=== PATIENT | male | born 1945 | race Caucasian/White ===

== ENCOUNTER 2019-10-29 06:23 | Inpatient (IN) ==
[2019-10-29] MEDS ORDERED: *HR* Propofol 200 MG/20 ML VIAL IVP ONE (07:07)
[2019-10-29] MEDS ORDERED: *HR* FentaNYL (PF) 100 MCG/2 ML VIAL ONE ×2 (07:07→08:24)
[2019-10-29] MEDS ORDERED: Gabapentin 300 MG CAPSULE PO ONE (07:09)
[2019-10-29] MEDS ORDERED: Lidocaine -MPF 2% 2 ML VIAL ONE ×2 (07:10→07:54)
[2019-10-29] MEDS ORDERED: *HR* Rocuronium Bromide 50 MG/5 ML VIAL ONE ×2 (07:13→09:29)
[2019-10-29] MEDS ORDERED: Ondansetron 4 MG/2 ML VIAL ONE (07:13)
[2019-10-29] MEDS ORDERED: *HR* Succinylcholine 200 MG/10 ML VIAL IVP ONE (07:13)
[2019-10-29] MEDS ORDERED: Dexamethasone 4 MG/ML VIAL ONE (07:13)
[2019-10-29] MEDS ORDERED: CeFAZolin Syr 2,000MG/20 ML 2,000 MG/20 ML SYRINGE IVPB ONE (07:14)
[2019-10-29] MEDS ORDERED: Ringers Solution, Lactated 1,000 ML IVC SCH (07:15)
[2019-10-29] MEDS ORDERED: Heparin 1,000 UNITS/500 mL 500 ML ONE (07:25)
[2019-10-29] MEDS ORDERED: Famotidine 20 MG/2 ML VIAL ONE (07:50)
[2019-10-29] MEDS ORDERED: Acetaminophen IV 1,000 MG/100 ML INFUS..BTL ONE (07:50)
[2019-10-29] MEDS ORDERED: *HR* PHENYLEPHRINE 1,000 MCG/10 ML SYRINGE IVP ONE (08:20)
[2019-10-29] MEDS ORDERED: *HR* HYDROMORPHONE 2 MG/ML VIAL ONE (08:36)
[2019-10-29] MEDS ORDERED: *HR* Promethazine 25 MG/ML VIAL IVP PRN (08:48)
[2019-10-29] MEDS ORDERED: *HR* HYDROmorphone PF 0.5 MG/0.5 ML SYRINGE IVP PRN (08:48)
[2019-10-29] MEDS ORDERED: Ondansetron 4 MG/2 ML VIAL IVP ONE (08:48)
[2019-10-29] MEDS ORDERED: EPHEDrine 50 MG/ML VIAL ONE (09:01)
[2019-10-29] MEDS ORDERED: Naloxone 0.4 MG/ML INJ IVP PRN (11:22)
[2019-10-29] MEDS ORDERED: *HR* HYDROcodone/Acet 5/325 mg TABLET PO PRN (11:22)
[2019-10-29] MEDS ORDERED: Ondansetron 4 MG/2 ML VIAL IVP PRN (11:22)
[2019-10-29] MEDS: Ketorolac 15 MG/ML VIAL IVP SCH ×2 (12:06→17:40)
[2019-10-29] MEDS: *HR* Heparin 5,000 UNIT/ML VIAL SQ SCH ×2 (12:07→21:19)
[2019-10-29] MEDS: polyethylene glycoL 3350 17 GM POWD.PACK PO SCH (12:07)
[2019-10-29] MEDS: Ipratropium/Albuterol Neb 3 ML IH SCH ×4 (16:17→23:58)
[2019-10-29] MEDS: Gabapentin 300 MG CAPSULE PO SCH ×2 (16:22→21:19)
[2019-10-29] MEDS: 0.9 % Sodium Chloride 1,000 ML IVC SCH (17:41)
[2019-10-29] MEDS: Budesonide/Formoterol 160/4.5 1 PUFF INH IH SCH (20:41)
[2019-10-29] MEDS: Sennosides/Docusate Sodium TABLET PO SCH (21:19)
[2019-10-29] MEDS: Famotidine 20 MG TABLET PO SCH (21:19)
[2019-10-30] MEDS: Ketorolac 15 MG/ML VIAL IVP SCH ×5 (00:19→23:35)
[2019-10-30] MEDS: Ipratropium/Albuterol Neb 3 ML IH SCH ×6 (03:52→23:49)
[2019-10-30 05:04] LABS: Hematocrit 33.9 % (37.5-50.1); Mean Corpuscular HGB Conc 32.2 g/dL (31.6-35.5); Mean Corpuscular Hemoglobin 28.1 pg (28.0-33.3); Mean Corpuscular Volume 87.4 fL (83.0-100.0); Mean Platelet Volume 8.5 fL (9.4-12.4); Platelet Count 155 K/mcL (140-400); Red Blood Count 3.88 M/mcL (4.19-5.50); Red Cell Distribution Width 18.1 % (11.5-14.5)
[2019-10-30 05:05] LABS: Hemoglobin 10.9 g/dL (12.9-16.9); White Blood Count 6.1 K/mcL (4.3-11.1)
[2019-10-30 05:23] LABS: % Iron Saturation 10 % (20-55); BUN/Creatinine Ratio 19 (6-26); Blood Urea Nitrogen 15 mg/dL (8-23); Calcium 8.5 mg/dL (8.6-10.3); Carbon Dioxide 23 mEq/L (23-29); Chloride 105 mEq/L (98-107); Glucose 142 mg/dL (70-105); Iron 26 mcg/dL (65-175); Magnesium 1.7 mg/dL (1.6-2.6); Osmolality,Calculated 289 (280-300); Phosphorous 2.5 mg/dL (2.7-4.5); Potassium 3.8 mEq/L (3.5-5.1); Sodium 138 mEq/L (136-145); Transferrin 184 mg/dL (203-362); eGFR For African Americans > 60 (> 60); eGFR For Non-African Americans > 60 (> 60)
[2019-10-30] MEDS: *HR* Heparin 5,000 UNIT/ML VIAL SQ SCH ×3 (06:17→20:31)
[2019-10-30] MEDS: 0.9 % Sodium Chloride 1,000 ML IVC SCH (06:18)
[2019-10-30] MEDS: Budesonide/Formoterol 160/4.5 1 PUFF INH IH SCH ×2 (08:26→19:39)
[2019-10-30] MEDS: Famotidine 20 MG TABLET PO SCH ×2 (08:34→20:30)
[2019-10-30] MEDS: amLODIPine 5 MG TABLET PO SCH (08:34)
[2019-10-30] MEDS: Sennosides/Docusate Sodium TABLET PO SCH ×2 (08:34→20:30)
[2019-10-30] MEDS: Gabapentin 300 MG CAPSULE PO SCH ×3 (08:34→20:30)
[2019-10-30] MEDS: atenoloL 25 MG TABLET PO SCH (08:34)
[2019-10-30] MEDS ORDERED: Potassium Phosphate 44 MEQ in 0.9 % Sodium Chloride 250 ML IVPB ONE (08:49)
[2019-10-30] MEDS ORDERED: Iron Sucrose Complex 400 MG in 0.9 % Sodium Chloride 250 ML IVPB ONE (08:49)
[2019-10-30] MEDS ORDERED: Furosemide 20 MG TABLET PO ONE (09:00)
[2019-10-30] MEDS: polyethylene glycoL 3350 17 GM POWD.PACK PO SCH (11:33)
[2019-10-31] MEDS: Ipratropium/Albuterol Neb 3 ML IH SCH ×5 (03:58→20:20)
[2019-10-31 04:31] LABS: Hematocrit 30.3 % (37.5-50.1); Hemoglobin 9.6 g/dL (12.9-16.9); Mean Corpuscular HGB Conc 31.7 g/dL (31.6-35.5); Mean Corpuscular Hemoglobin 28.5 pg (28.0-33.3); Mean Corpuscular Volume 89.9 fL (83.0-100.0); Mean Platelet Volume 8.9 fL (9.4-12.4); Platelet Count 161 K/mcL (140-400); Red Blood Count 3.37 M/mcL (4.19-5.50); Red Cell Distribution Width 18.8 % (11.5-14.5); White Blood Count 5.3 K/mcL (4.3-11.1)
[2019-10-31 04:51] LABS: BUN/Creatinine Ratio 15 (6-26); Blood Urea Nitrogen 14 mg/dL (8-23); Calcium 8.5 mg/dL (8.6-10.3); Carbon Dioxide 26 mEq/L (23-29); Chloride 108 mEq/L (98-107); Glucose 134 mg/dL (70-105); Magnesium 2.1 mg/dL (1.6-2.6); Osmolality,Calculated 292 (280-300); Phosphorous 2.7 mg/dL (2.7-4.5); Potassium 3.8 mEq/L (3.5-5.1); Sodium 140 mEq/L (136-145); eGFR For African Americans > 60 (> 60); eGFR For Non-African Americans > 60 (> 60)
[2019-10-31] MEDS: *HR* Heparin 5,000 UNIT/ML VIAL SQ SCH ×2 (05:02→21:24)
[2019-10-31] MEDS: Ketorolac 15 MG/ML VIAL IVP SCH ×3 (05:03→17:19)
[2019-10-31] MEDS: Budesonide/Formoterol 160/4.5 1 PUFF INH IH SCH ×2 (07:21→20:20)
[2019-10-31] MEDS: Gabapentin 300 MG CAPSULE PO SCH ×2 (07:39→21:26)
[2019-10-31] MEDS: Famotidine 20 MG TABLET PO SCH ×2 (07:39→21:26)
[2019-10-31] MEDS: Sennosides/Docusate Sodium TABLET PO SCH ×2 (07:39→21:25)
[2019-10-31] MEDS: atenoloL 25 MG TABLET PO SCH (07:39)
[2019-10-31] MEDS: amLODIPine 5 MG TABLET PO SCH (07:39)
[2019-10-31] MEDS: polyethylene glycoL 3350 17 GM POWD.PACK PO SCH ×2 (11:57→17:19)
[2019-10-31] MEDS ORDERED: Ondansetron 4 MG/2 ML VIAL IVP PRN (16:07)
[2019-10-31] MEDS ORDERED: Naloxone 0.4 MG/ML INJ IVP PRN (16:07)
[2019-10-31] MEDS: *HR* HYDROcodone/Acet 5/325 mg TABLET PO PRN (21:25)
[2019-11-01] MEDS: Ipratropium/Albuterol Neb 3 ML IH SCH ×7 (00:01→23:59)
[2019-11-01] MEDS: Ketorolac 15 MG/ML VIAL IVP SCH ×4 (01:14→17:00)
[2019-11-01 01:39] LABS: Hematocrit 30.6 % (37.5-50.1); Hemoglobin 9.3 g/dL (12.9-16.9); Mean Corpuscular HGB Conc 30.4 g/dL (31.6-35.5); Mean Corpuscular Hemoglobin 27.9 pg (28.0-33.3); Mean Corpuscular Volume 91.9 fL (83.0-100.0); Mean Platelet Volume 8.2 fL (9.4-12.4); Platelet Count 168 K/mcL (140-400); Red Blood Count 3.33 M/mcL (4.19-5.50); Red Cell Distribution Width 19.2 % (11.5-14.5); White Blood Count 3.9 K/mcL (4.3-11.1)
[2019-11-01 01:58] LABS: BUN/Creatinine Ratio 17 (6-26); Blood Urea Nitrogen 14 mg/dL (8-23); Calcium 8.5 mg/dL (8.6-10.3); Carbon Dioxide 27 mEq/L (23-29); Chloride 108 mEq/L (98-107); Glucose 145 mg/dL (70-105); Osmolality,Calculated 293 (280-300); Phosphorous 2.9 mg/dL (2.7-4.5); Potassium 3.9 mEq/L (3.5-5.1); Sodium 140 mEq/L (136-145); eGFR For African Americans > 60 (> 60); eGFR For Non-African Americans > 60 (> 60)
[2019-11-01] MEDS: *HR* Heparin 5,000 UNIT/ML VIAL SQ SCH ×3 (05:26→21:16)
[2019-11-01] MEDS: Gabapentin 300 MG CAPSULE PO SCH ×3 (07:36→21:17)
[2019-11-01] MEDS: Sennosides/Docusate Sodium TABLET PO SCH ×2 (07:36→21:18)
[2019-11-01] MEDS: atenoloL 25 MG TABLET PO SCH (07:37)
[2019-11-01] MEDS: Famotidine 20 MG TABLET PO SCH ×2 (07:37→21:17)
[2019-11-01] MEDS: Budesonide/Formoterol 160/4.5 1 PUFF INH IH SCH ×2 (07:50→19:56)
[2019-11-01] MEDS: polyethylene glycoL 3350 17 GM POWD.PACK PO SCH (17:00)
[2019-11-01] MEDS: *HR* HYDROcodone/Acet 5/325 mg TABLET PO PRN (21:17)
[2019-11-02 01:18] LABS: Hematocrit 30.4 % (37.5-50.1); Hemoglobin 9.4 g/dL (12.9-16.9); Mean Corpuscular HGB Conc 30.9 g/dL (31.6-35.5); Mean Corpuscular Hemoglobin 28.2 pg (28.0-33.3); Mean Corpuscular Volume 91.3 fL (83.0-100.0); Mean Platelet Volume 8.3 fL (9.4-12.4); Platelet Count 198 K/mcL (140-400); Red Blood Count 3.33 M/mcL (4.19-5.50); Red Cell Distribution Width 18.9 % (11.5-14.5)
[2019-11-02 01:42] LABS: BUN/Creatinine Ratio 17 (6-26); Blood Urea Nitrogen 14 mg/dL (8-23); Calcium 8.7 mg/dL (8.6-10.3); Carbon Dioxide 25 mEq/L (23-29); Chloride 109 mEq/L (98-107); Glucose 114 mg/dL (70-105); Magnesium 1.9 mg/dL (1.6-2.6); Osmolality,Calculated 293 (280-300); Phosphorous 3.2 mg/dL (2.7-4.5); Potassium 4.2 mEq/L (3.5-5.1); Sodium 141 mEq/L (136-145); eGFR For African Americans > 60 (> 60); eGFR For Non-African Americans > 60 (> 60)
[2019-11-02] MEDS: Ipratropium/Albuterol Neb 3 ML IH SCH ×2 (03:23→07:31)
[2019-11-02] MEDS: *HR* Heparin 5,000 UNIT/ML VIAL SQ SCH (04:59)
[2019-11-02] MEDS: Ketorolac 15 MG/ML VIAL IVP SCH ×2 (04:59→05:00)
[2019-11-02] MEDS: Budesonide/Formoterol 160/4.5 1 PUFF INH IH SCH (07:31)
[2019-11-02] MEDS: *HR* HYDROcodone/Acet 5/325 mg TABLET PO PRN (09:08)
[2019-11-02] MEDS: atenoloL 25 MG TABLET PO SCH (09:46)
[2019-11-02] MEDS: Gabapentin 300 MG CAPSULE PO SCH (09:46)
[2019-11-02] MEDS: Sennosides/Docusate Sodium TABLET PO SCH (09:46)
[2019-11-02] MEDS: Famotidine 20 MG TABLET PO SCH (09:46)
[2019-11-02 11:06] VITALS: BP 117/77
== END 2019-11-02 11:31 | disposition home or self-care (01) | DRG 165 ==
LOC: SAMDAY 06:23 → ICNU 08:27 → 3NENU 10-31 16:00
PROVIDERS: ADMIT Thoracic Surgery (Cardiothoracic Vascular Surgery); ATTEND Thoracic Surgery (Cardiothoracic Vascular Surgery)

== ENCOUNTER 2019-12-11 13:40 | Inpatient (IN) ==
[2019-12-11 14:46] LABS: Basophils % 0.5 %; Eosinophils # 0.2 K/mcL (0.0-0.6); Eosinophils % 3.4 %; Hematocrit 41.4 % (37.5-50.1); Hemoglobin 12.5 g/dL (12.9-16.9); Immature Granulocytes % 0.6 % (0-4); Lymphocytes # 0.6 K/mcL (0.6-4.6); Lymphocytes % 8.5 %; Mean Corpuscular HGB Conc 30.2 g/dL (31.6-35.5); Mean Corpuscular Hemoglobin 26.2 pg (28.0-33.3); Mean Corpuscular Volume 86.8 fL (83.0-100.0); Mean Platelet Volume 8.7 fL (9.4-12.4); Monocytes # 0.5 K/mcL (0.0-1.3); Monocytes % 7.4 %; Neutrophils # 5.2 K/mcL (1.6-8.9); Platelet Count 315 K/mcL (140-400); Red Blood Count 4.77 M/mcL (4.19-5.50); Red Cell Distribution Width 15.1 % (11.5-14.5); Segmented Neutrophils % 79.6 %; White Blood Count 6.5 K/mcL (4.3-11.1)
[2019-12-11 15:06] LABS: BUN/Creatinine Ratio 19 (6-26); Blood Urea Nitrogen 13 mg/dL (8-23); Calcium 9.4 mg/dL (8.6-10.3); Carbon Dioxide 27 mEq/L (23-29); Chloride 103 mEq/L (98-107); Glucose 109 mg/dL (70-105); Osmolality,Calculated 289 (280-300); Potassium 4.1 mEq/L (3.5-5.1); Sodium 139 mEq/L (136-145); eGFR For African Americans > 60 (> 60); eGFR For Non-African Americans > 60 (> 60)
[2019-12-11] MEDS ORDERED: Piperacillin/Tazobactam 3.375 GM in 0.9 % Sodium Chloride Mini Bag 100 ML IVPB ONE (15:19)
[2019-12-11] MEDS ORDERED: *HR* HYDROcodone/Acet 10/325 mg TABLET PO ONE (16:08)
[2019-12-11] MEDS ORDERED: *HR* Promethazine 25 MG/ML VIAL IVP PRN (17:13)
[2019-12-11] MEDS ORDERED: Naloxone 0.4 MG/ML INJ IVP PRN (17:13)
[2019-12-11] MEDS ORDERED: NON-FORMULARY MEDICATION 1 EACH EACH (Ipratropium/Albuterol Sulfate 1 PUFF) IH PRN (17:55)
[2019-12-11] MEDS ORDERED: Albuterol 2.5 MG/3 ML NEBULIZER IH PRN (17:55)
[2019-12-11] MEDS: *HR* Heparin 5,000 UNIT/ML VIAL SQ SCH (18:57)
[2019-12-11] MEDS: Megestrol Acetate 400 MG/10 ML UDC PO SCH (18:57)
[2019-12-11] MEDS: Lactobacillus 1 EACH CAP.SPRINK PO SCH (20:27)
[2019-12-11] MEDS: Doxycycline 100 MG CAPSULE PO SCH (20:28)
[2019-12-11] MEDS: Budesonide/Formoterol 160/4.5 1 PUFF INH IH SCH (20:47)
[2019-12-11] MEDS: Piperacillin/Tazobactam 3.375 GM in 0.9 % Sodium Chloride Mini Bag 100 ML IVPB SCH (23:35)
[2019-12-11] MEDS: Acetaminophen 325 MG TABLET PO PRN (23:57)
[2019-12-12 01:42] LABS: Basophils % 0.6 %; Eosinophils # 0.4 K/mcL (0.0-0.6); Hematocrit 34.6 % (37.5-50.1); Immature Granulocytes % 0.4 % (0-4); Lymphocytes # 0.6 K/mcL (0.6-4.6); Lymphocytes % 10.7 %; Mean Corpuscular HGB Conc 31.5 g/dL (31.6-35.5); Mean Corpuscular Hemoglobin 27.1 pg (28.0-33.3); Mean Corpuscular Volume 86.1 fL (83.0-100.0); Mean Platelet Volume 8.8 fL (9.4-12.4); Monocytes # 0.5 K/mcL (0.0-1.3); Neutrophils # 3.8 K/mcL (1.6-8.9); Platelet Count 268 K/mcL (140-400); Red Blood Count 4.02 M/mcL (4.19-5.50); Red Cell Distribution Width 15.1 % (11.5-14.5); Segmented Neutrophils % 71.3 %; White Blood Count 5.3 K/mcL (4.3-11.1)
[2019-12-12 01:56] LABS: Hemoglobin 10.9 g/dL (12.9-16.9)
[2019-12-12 02:02] LABS: BUN/Creatinine Ratio 19 (6-26); Blood Urea Nitrogen 13 mg/dL (8-23); Calcium 8.5 mg/dL (8.6-10.3); Carbon Dioxide 25 mEq/L (23-29); Chloride 106 mEq/L (98-107); Glucose 124 mg/dL (70-105); Osmolality,Calculated 290 (280-300); Potassium 3.8 mEq/L (3.5-5.1); Sodium 139 mEq/L (136-145); eGFR For African Americans > 60 (> 60); eGFR For Non-African Americans > 60 (> 60)
[2019-12-12] MEDS: *HR* Heparin 5,000 UNIT/ML VIAL SQ SCH ×2 (05:17→16:57)
[2019-12-12] MEDS: Megestrol Acetate 400 MG/10 ML UDC PO SCH (09:01)
[2019-12-12] MEDS: Lactobacillus 1 EACH CAP.SPRINK PO SCH ×2 (09:01→20:22)
[2019-12-12] MEDS: Doxycycline 100 MG CAPSULE PO SCH ×2 (09:01→20:22)
[2019-12-12] MEDS: polyethylene glycoL 3350 17 GM POWD.PACK PO SCH (09:02)
[2019-12-12] MEDS: Piperacillin/Tazobactam 3.375 GM in 0.9 % Sodium Chloride Mini Bag 100 ML IVPB SCH ×3 (09:02→23:32)
[2019-12-12] MEDS: Acetaminophen 325 MG TABLET PO PRN ×2 (09:13→20:30)
[2019-12-12] MEDS: amLODIPine 5 MG TABLET PO SCH (09:41)
[2019-12-12] MEDS: atenoloL 25 MG TABLET PO SCH (09:41)
[2019-12-12] MEDS: Budesonide/Formoterol 160/4.5 1 PUFF INH IH SCH ×2 (09:50→20:16)
[2019-12-12] MEDS: Ipratropium/Albuterol Neb 3 ML IH PRN (23:50)
[2019-12-13] MEDS: Benzonatate 100 MG CAPSULE PO PRN (00:09)
[2019-12-13 05:13] LABS: Basophils % 0.5 %; Eosinophils # 0.3 K/mcL (0.0-0.6); Eosinophils % 5.6 %; Hematocrit 37.2 % (37.5-50.1); Hemoglobin 11.3 g/dL (12.9-16.9); Immature Granulocytes % 0.3 % (0-4); Lymphocytes # 0.7 K/mcL (0.6-4.6); Lymphocytes % 11.4 %; Mean Corpuscular HGB Conc 30.4 g/dL (31.6-35.5); Mean Corpuscular Volume 85.5 fL (83.0-100.0); Mean Platelet Volume 8.8 fL (9.4-12.4); Monocytes # 0.6 K/mcL (0.0-1.3); Monocytes % 9.4 %; Neutrophils # 4.3 K/mcL (1.6-8.9); Platelet Count 279 K/mcL (140-400); Red Blood Count 4.35 M/mcL (4.19-5.50); Red Cell Distribution Width 14.9 % (11.5-14.5); Segmented Neutrophils % 72.8 %; White Blood Count 5.9 K/mcL (4.3-11.1)
[2019-12-13] MEDS: *HR* OxyCODONE Immed Rel 5 MG TABLET PO PRN (05:20)
[2019-12-13 05:28] LABS: BUN/Creatinine Ratio 14 (6-26); Blood Urea Nitrogen 11 mg/dL (8-23); Carbon Dioxide 25 mEq/L (23-29); Chloride 105 mEq/L (98-107); Glucose 95 mg/dL (70-105); Osmolality,Calculated 285 (280-300); Potassium 3.4 mEq/L (3.5-5.1); Sodium 138 mEq/L (136-145); eGFR For African Americans > 60 (> 60); eGFR For Non-African Americans > 60 (> 60)
[2019-12-13] MEDS: *HR* Heparin 5,000 UNIT/ML VIAL SQ SCH ×2 (05:56→17:56)
[2019-12-13] MEDS ORDERED: Vancomycin 1,500 MG/265 ML IV.SOLN IVPB SCH (07:00)
[2019-12-13] MEDS: Lactobacillus 1 EACH CAP.SPRINK PO SCH ×2 (08:28→20:31)
[2019-12-13] MEDS: Doxycycline 100 MG CAPSULE PO SCH ×2 (08:28→20:31)
[2019-12-13] MEDS: Megestrol Acetate 400 MG/10 ML UDC PO SCH (08:28)
[2019-12-13] MEDS: atenoloL 25 MG TABLET PO SCH (08:29)
[2019-12-13] MEDS: amLODIPine 5 MG TABLET PO SCH (08:29)
[2019-12-13] MEDS: polyethylene glycoL 3350 17 GM POWD.PACK PO SCH (08:29)
[2019-12-13] MEDS: Piperacillin/Tazobactam 3.375 GM in 0.9 % Sodium Chloride Mini Bag 100 ML IVPB SCH ×2 (08:29→15:52)
[2019-12-13] MEDS ORDERED: Aminoglycoside Consult 1 EACH MC ONE (08:49)
[2019-12-13] MEDS: Budesonide/Formoterol 160/4.5 1 PUFF INH IH SCH ×2 (10:27→21:37)
[2019-12-13] MEDS: Ipratropium/Albuterol Neb 3 ML IH PRN (10:27)
[2019-12-13] MEDS: Ipratropium/Albuterol Neb 3 ML IH SCH ×3 (15:41→21:37)
[2019-12-13] MEDS: Acetaminophen 325 MG TABLET PO PRN (20:31)
[2019-12-14] MEDS: Piperacillin/Tazobactam 3.375 GM in 0.9 % Sodium Chloride Mini Bag 100 ML IVPB SCH ×3 (00:12→16:08)
[2019-12-14 02:50] LABS: Basophils % 0.3 %; Eosinophils # 0.2 K/mcL (0.0-0.6); Eosinophils % 3.3 %; Hematocrit 35.3 % (37.5-50.1); Hemoglobin 10.9 g/dL (12.9-16.9); Immature Granulocytes % 0.5 % (0-4); Lymphocytes # 0.5 K/mcL (0.6-4.6); Lymphocytes % 8.2 %; Mean Corpuscular HGB Conc 30.9 g/dL (31.6-35.5); Mean Corpuscular Hemoglobin 26.4 pg (28.0-33.3); Mean Corpuscular Volume 85.5 fL (83.0-100.0); Mean Platelet Volume 8.9 fL (9.4-12.4); Monocytes # 0.7 K/mcL (0.0-1.3); Monocytes % 12.3 %; Neutrophils # 4.3 K/mcL (1.6-8.9); Platelet Count 250 K/mcL (140-400); Red Blood Count 4.13 M/mcL (4.19-5.50); Red Cell Distribution Width 15.2 % (11.5-14.5); Segmented Neutrophils % 75.4 %; White Blood Count 5.8 K/mcL (4.3-11.1)
[2019-12-14 03:09] LABS: Calcium 8.9 mg/dL (8.6-10.3); Potassium 4.2 mEq/L (3.5-5.1)
[2019-12-14] MEDS: Ipratropium/Albuterol Neb 3 ML IH SCH ×4 (04:23→21:40)
[2019-12-14] MEDS: *HR* Heparin 5,000 UNIT/ML VIAL SQ SCH ×2 (06:05→17:43)
[2019-12-14] MEDS: atenoloL 25 MG TABLET PO SCH (08:00)
[2019-12-14] MEDS: *HR* OxyCODONE Immed Rel 5 MG TABLET PO PRN ×2 (08:00→22:46)
[2019-12-14] MEDS: Megestrol Acetate 400 MG/10 ML UDC PO SCH (08:00)
[2019-12-14] MEDS: Lactobacillus 1 EACH CAP.SPRINK PO SCH ×2 (08:00→22:42)
[2019-12-14] MEDS: Doxycycline 100 MG CAPSULE PO SCH ×2 (08:00→22:42)
[2019-12-14] MEDS: polyethylene glycoL 3350 17 GM POWD.PACK PO SCH (08:01)
[2019-12-14] MEDS: amLODIPine 5 MG TABLET PO SCH (08:01)
[2019-12-14] MEDS: Ringers Solution, Lactated 1,000 ML IVC SCH ×2 (09:15→22:42)
[2019-12-14] MEDS: Budesonide/Formoterol 160/4.5 1 PUFF INH IH SCH ×2 (09:38→21:40)
[2019-12-15] MEDS: Piperacillin/Tazobactam 3.375 GM in 0.9 % Sodium Chloride Mini Bag 100 ML IVPB SCH ×2 (00:10→08:10)
[2019-12-15 00:59] LABS: Basophils % 0.3 %; Eosinophils # 0.2 K/mcL (0.0-0.6); Hematocrit 33.4 % (37.5-50.1); Hemoglobin 10.3 g/dL (12.9-16.9); Immature Granulocytes % 0.3 % (0-4); Lymphocytes # 0.6 K/mcL (0.6-4.6); Lymphocytes % 9.9 %; Mean Corpuscular HGB Conc 30.8 g/dL (31.6-35.5); Mean Corpuscular Hemoglobin 26.3 pg (28.0-33.3); Mean Corpuscular Volume 85.4 fL (83.0-100.0); Mean Platelet Volume 9.2 fL (9.4-12.4); Monocytes # 0.7 K/mcL (0.0-1.3); Monocytes % 11.6 %; Neutrophils # 4.4 K/mcL (1.6-8.9); Platelet Count 247 K/mcL (140-400); Red Blood Count 3.91 M/mcL (4.19-5.50); Red Cell Distribution Width 15.5 % (11.5-14.5); Segmented Neutrophils % 73.9 %
[2019-12-15 01:18] LABS: Calcium 8.7 mg/dL (8.6-10.3)
[2019-12-15] MEDS: Ipratropium/Albuterol Neb 3 ML IH SCH ×4 (03:23→22:13)
[2019-12-15] MEDS: *HR* Heparin 5,000 UNIT/ML VIAL SQ SCH ×2 (05:25→16:30)
[2019-12-15] MEDS: atenoloL 25 MG TABLET PO SCH (08:09)
[2019-12-15] MEDS: Lactobacillus 1 EACH CAP.SPRINK PO SCH ×2 (08:09→21:08)
[2019-12-15] MEDS: Doxycycline 100 MG CAPSULE PO SCH ×2 (08:09→21:03)
[2019-12-15] MEDS: amLODIPine 5 MG TABLET PO SCH (08:09)
[2019-12-15] MEDS: polyethylene glycoL 3350 17 GM POWD.PACK PO SCH (08:10)
[2019-12-15] MEDS: Megestrol Acetate 400 MG/10 ML UDC PO SCH (08:10)
[2019-12-15 08:11] LABS: Uric Acid 3.2 mg/dL (2.3-7.6)
[2019-12-15 09:02] LABS: Protein/Creatinine Ratio,Urine 0.27 mg/mg (0.00-0.20); Sodium, Urine 98.4 mEq/L
[2019-12-15] MEDS: Budesonide/Formoterol 160/4.5 1 PUFF INH IH SCH ×2 (10:59→22:13)
[2019-12-15] MEDS: Sennosides/Docusate Sodium TABLET PO SCH ×2 (11:37→21:08)
[2019-12-15] MEDS: Ringers Solution, Lactated 1,000 ML IVC SCH ×2 (12:00→14:09)
[2019-12-15 16:33] LABS: Bilirubin,Urine Negative (Negative); Blood,Urine Negative (Negative); Clarity,Urine Clear (Clear); Color,Urine Yellow (Yellow); Glucose,Urine (UA) Normal (Normal); Ketones,Urine Negative (Negative); Leukocyte Esterase,Urine Negative (Negative); Nitrite,Urine Negative (Negative); Protein,Urine Negative (Neg-Trace); Specific Gravity,Urine 1.012 (1.010-1.025); Urobilinogen,Urine Normal (Normal)
[2019-12-15] MEDS: *HR* OxyCODONE Immed Rel 5 MG TABLET PO PRN (21:07)
[2019-12-16] MEDS: Ipratropium/Albuterol Neb 3 ML IH SCH ×4 (03:55→22:25)
[2019-12-16] MEDS: *HR* Heparin 5,000 UNIT/ML VIAL SQ SCH ×2 (05:14→17:13)
[2019-12-16] MEDS: Ringers Solution, Lactated 1,000 ML IVC SCH ×2 (05:16→17:13)
[2019-12-16] MEDS: Lactobacillus 1 EACH CAP.SPRINK PO SCH ×2 (07:27→20:02)
[2019-12-16] MEDS: amLODIPine 5 MG TABLET PO SCH (07:27)
[2019-12-16] MEDS: Megestrol Acetate 400 MG/10 ML UDC PO SCH (07:27)
[2019-12-16] MEDS: Sennosides/Docusate Sodium TABLET PO SCH ×2 (07:27→20:02)
[2019-12-16] MEDS: Doxycycline 100 MG CAPSULE PO SCH ×2 (07:27→20:02)
[2019-12-16] MEDS: atenoloL 25 MG TABLET PO SCH (07:28)
[2019-12-16] MEDS: polyethylene glycoL 3350 17 GM POWD.PACK PO SCH (07:28)
[2019-12-16 08:14] LABS: Calcium 9.3 mg/dL (8.6-10.3); Potassium 3.9 mEq/L (3.5-5.1)
[2019-12-16] MEDS: Budesonide/Formoterol 160/4.5 1 PUFF INH IH SCH ×2 (09:13→22:25)
[2019-12-16 11:50] LABS: Basophils % 0.4 %; Eosinophils # 0.3 K/mcL (0.0-0.6); Eosinophils % 3.7 %; Hematocrit 33.3 % (37.5-50.1); Hemoglobin 10.2 g/dL (12.9-16.9); Immature Granulocytes % 0.3 % (0-4); Lymphocytes # 0.5 K/mcL (0.6-4.6); Lymphocytes % 7.9 %; Mean Corpuscular HGB Conc 30.6 g/dL (31.6-35.5); Mean Corpuscular Hemoglobin 26.7 pg (28.0-33.3); Mean Corpuscular Volume 87.2 fL (83.0-100.0); Monocytes # 0.7 K/mcL (0.0-1.3); Monocytes % 10.4 %; Neutrophils # 5.2 K/mcL (1.6-8.9); Platelet Count 222 K/mcL (140-400); Red Blood Count 3.82 M/mcL (4.19-5.50); Red Cell Distribution Width 15.7 % (11.5-14.5); Segmented Neutrophils % 77.3 %; White Blood Count 6.7 K/mcL (4.3-11.1)
[2019-12-16 12:10] LABS: INR 1.4; Prothrombin Time 15.8 Seconds (9.4-12.1)
[2019-12-16 12:13] LABS: Activated Partial Thrombo Time 30.4 Seconds (26.0-36.0)
[2019-12-16] MEDS: *HR* OxyCODONE Immed Rel 5 MG TABLET PO PRN (20:02)
[2019-12-16] MEDS: Benzonatate 100 MG CAPSULE PO PRN (23:17)
[2019-12-17 02:35] LABS: Basophils % 0.3 %; Eosinophils # 0.3 K/mcL (0.0-0.6); Hematocrit 32.1 % (37.5-50.1); Hemoglobin 9.8 g/dL (12.9-16.9); Immature Granulocytes % 0.3 % (0-4); Lymphocytes # 0.6 K/mcL (0.6-4.6); Lymphocytes % 9.2 %; Mean Corpuscular HGB Conc 30.5 g/dL (31.6-35.5); Mean Corpuscular Hemoglobin 26.4 pg (28.0-33.3); Mean Corpuscular Volume 86.5 fL (83.0-100.0); Mean Platelet Volume 9.3 fL (9.4-12.4); Monocytes # 0.8 K/mcL (0.0-1.3); Monocytes % 10.8 %; Neutrophils # 5.3 K/mcL (1.6-8.9); Platelet Count 225 K/mcL (140-400); Red Blood Count 3.71 M/mcL (4.19-5.50); Red Cell Distribution Width 15.6 % (11.5-14.5); Segmented Neutrophils % 75.4 %
[2019-12-17 02:54] LABS: BUN/Creatinine Ratio 17 (6-26); Blood Urea Nitrogen 21 mg/dL (8-23); Calcium 8.7 mg/dL (8.6-10.3); Carbon Dioxide 24 mEq/L (23-29); Chloride 106 mEq/L (98-107); Glucose 107 mg/dL (70-105); Osmolality,Calculated 287 (280-300); Sodium 137 mEq/L (136-145); eGFR For African Americans > 60 (> 60); eGFR For Non-African Americans 58 (> 60)
[2019-12-17] MEDS: Ipratropium/Albuterol Neb 3 ML IH SCH (04:14)
[2019-12-17] MEDS: *HR* Heparin 5,000 UNIT/ML VIAL SQ SCH (05:34)
[2019-12-17] MEDS: Benzonatate 100 MG CAPSULE PO PRN (05:34)
[2019-12-17] MEDS: *HR* OxyCODONE Immed Rel 5 MG TABLET PO PRN (05:34)
[2019-12-17 07:01] VITALS: BP 106/74
[2019-12-17] MEDS: Doxycycline 100 MG CAPSULE PO SCH (08:26)
[2019-12-17] MEDS: amLODIPine 5 MG TABLET PO SCH (08:26)
[2019-12-17] MEDS: Lactobacillus 1 EACH CAP.SPRINK PO SCH (08:26)
[2019-12-17] MEDS: Ringers Solution, Lactated 1,000 ML IVC SCH (08:26)
[2019-12-17] MEDS: Megestrol Acetate 400 MG/10 ML UDC PO SCH (08:26)
[2019-12-17] MEDS: polyethylene glycoL 3350 17 GM POWD.PACK PO SCH (08:27)
[2019-12-17] MEDS: atenoloL 25 MG TABLET PO SCH (08:27)
[2019-12-17] MEDS: Sennosides/Docusate Sodium TABLET PO SCH (08:27)
== END 2019-12-17 10:03 | DRG 177 ==
LOC: 2ANU 13:40 → EMEROOARM 13:40 → SUATTDRO 17:48 → 2ANU 18:41 → SUATTDRO 12-12 13:32
PROVIDERS: ADMIT Internal Medicine; ATTEND Family Medicine

== ENCOUNTER 2019-12-26 19:01 | Observation (INO) ==
[2019-12-26] MEDS ORDERED: Ondansetron 4 MG/2 ML VIAL IVP PRN (23:33)
[2019-12-26] MEDS ORDERED: Naloxone 0.4 MG/ML INJ IVP PRN (23:33)
[2019-12-26] MEDS ORDERED: Melatonin 3 MG TABLET PO PRN (23:46)
[2019-12-26] MEDS ORDERED: Benzonatate 100 MG CAPSULE PO PRN (23:46)
[2019-12-27 00:36] LABS: Basophils % 0.1 %; Eosinophils % 0.1 %; Hematocrit 37.5 % (37.5-50.1); Hemoglobin 11.4 g/dL (12.9-16.9); Immature Granulocytes % 0.4 % (0-4); Lymphocytes # 0.2 K/mcL (0.6-4.6); Lymphocytes % 2.7 %; Mean Corpuscular HGB Conc 30.4 g/dL (31.6-35.5); Mean Corpuscular Hemoglobin 25.9 pg (28.0-33.3); Mean Platelet Volume 8.9 fL (9.4-12.4); Monocytes # 0.1 K/mcL (0.0-1.3); Monocytes % 1.1 %; Neutrophils # 7.1 K/mcL (1.6-8.9); Platelet Count 306 K/mcL (140-400); Red Blood Count 4.41 M/mcL (4.19-5.50); Red Cell Distribution Width 15.5 % (11.5-14.5); Segmented Neutrophils % 95.6 %; White Blood Count 7.4 K/mcL (4.3-11.1)
[2019-12-27 00:56] LABS: BUN/Creatinine Ratio 22 (6-26); Blood Urea Nitrogen 21 mg/dL (8-23); Calcium 9.1 mg/dL (8.6-10.3); Carbon Dioxide 25 mEq/L (23-29); Chloride 104 mEq/L (98-107); Glucose 140 mg/dL (70-105); Osmolality,Calculated 291 (280-300); Potassium 4.2 mEq/L (3.5-5.1); Sodium 138 mEq/L (136-145); eGFR For African Americans > 60 (> 60); eGFR For Non-African Americans > 60 (> 60)
[2019-12-27] MEDS ORDERED: Isovue-370 500 ML BOTTLE IVP ONE (03:41)
[2019-12-27] MEDS: Ipratropium/Albuterol Neb 3 ML IH SCH ×6 (04:22→20:02)
[2019-12-27] MEDS: Budesonide/Formoterol 160/4.5 1 PUFF INH IH SCH ×2 (08:01→20:02)
[2019-12-27 08:22] LABS: Adenovirus Not Detected (Not Detect); Bordetella Pertussis Not Detected (Not Detect); Chlamydophila pneumoniae Not Detected (Not Detect); Coronavirus 229E Not Detected (Not Detect); Coronavirus HKU1 Not Detected (Not Detect); Coronavirus NL63 Not Detected (Not Detect); Coronavirus OC43 Not Detected (Not Detect); Human Metapneumovirus Not Detected (Not Detect); Human Rhinovirus/Enterovirus Not Detected (Not Detect); Influenza A Subtype 2009 H1 Not Detected (Not Detect); Influenza B Not Detected (Not Detect); Mycoplasma pneumoniae Not Detected (Not Detect); Parainfluenza Virus 1 Not Detected (Not Detect); Parainfluenza Virus 2 Not Detected (Not Detect); Parainfluenza Virus 3 Not Detected (Not Detect); Parainfluenza Virus 4 Not Detected (Not Detect); Respiratory Syncytial Virus Not Detected (Not Detect)
[2019-12-27] MEDS: Piperacillin/Tazobactam 3.375 GM in 0.9 % Sodium Chloride Mini Bag 100 ML IVPB SCH ×2 (08:24→15:27)
[2019-12-27] MEDS: *HR* Heparin 5,000 UNIT/ML VIAL SQ SCH ×2 (08:30→17:44)
[2019-12-27] MEDS: atenoloL 25 MG TABLET PO SCH (08:30)
[2019-12-27] MEDS: predniSONE 20 MG TABLET PO SCH (14:13)
[2019-12-27 15:26] LABS: Estimated Average Glucose 128 mg/dl
[2019-12-28] MEDS: Ipratropium/Albuterol Neb 3 ML IH SCH ×5 (00:48→15:57)
[2019-12-28 02:26] LABS: Hematocrit 39.1 % (37.5-50.1); Hemoglobin 11.7 g/dL (12.9-16.9); Immature Granulocytes % 0.5 % (0-4); Lymphocytes # 0.3 K/mcL (0.6-4.6); Lymphocytes % 3.8 %; Mean Corpuscular HGB Conc 29.9 g/dL (31.6-35.5); Mean Corpuscular Hemoglobin 25.8 pg (28.0-33.3); Mean Corpuscular Volume 86.1 fL (83.0-100.0); Mean Platelet Volume 8.9 fL (9.4-12.4); Monocytes # 0.3 K/mcL (0.0-1.3); Monocytes % 3.7 %; Neutrophils # 6.7 K/mcL (1.6-8.9); Platelet Count 322 K/mcL (140-400); Red Blood Count 4.54 M/mcL (4.19-5.50); Red Cell Distribution Width 15.2 % (11.5-14.5); White Blood Count 7.3 K/mcL (4.3-11.1)
[2019-12-28 02:43] LABS: BUN/Creatinine Ratio 29 (6-26); Blood Urea Nitrogen 29 mg/dL (8-23); Calcium 9.2 mg/dL (8.6-10.3); Carbon Dioxide 25 mEq/L (23-29); Chloride 104 mEq/L (98-107); Glucose 140 mg/dL (70-105); Osmolality,Calculated 292 (280-300); Potassium 3.8 mEq/L (3.5-5.1); Sodium 137 mEq/L (136-145); eGFR For African Americans > 60 (> 60); eGFR For Non-African Americans > 60 (> 60)
[2019-12-28] MEDS: *HR* Heparin 5,000 UNIT/ML VIAL SQ SCH (06:09)
[2019-12-28] MEDS: Budesonide/Formoterol 160/4.5 1 PUFF INH IH SCH (07:37)
[2019-12-28] MEDS: atenoloL 25 MG TABLET PO SCH (08:07)
[2019-12-28] MEDS: Piperacillin/Tazobactam 3.375 GM in 0.9 % Sodium Chloride Mini Bag 100 ML IVPB SCH ×2 (08:07)
[2019-12-28] MEDS: predniSONE 20 MG TABLET PO SCH (08:08)
[2019-12-28] MEDS ORDERED: amLODIPine 5 MG TABLET PO SCH (09:00)
[2019-12-28 11:19] VITALS: BP 110/81
== END 2019-12-28 15:55 | disposition other institution (70) ==
LOC: 2NNU
PROVIDERS: ADMIT Internal Medicine; ATTEND Internal Medicine